=== PATIENT | female | born 2000 | race African-American/Black ===

== ENCOUNTER 2019-07-31 05:47 | Emergency (ER) | payer OTHER ==
[~2019-07-31] VITALS: Ht 172.7 cm; Wt 90.7 kg
[~2019-07-31 05:47] MED LIST: BENTYL 20 MG TA20 M1 PO; GAS-X125 M1 PO; ZOFRAN ODT4 MG PO
[2019-07-31] MEDS ORDERED: EXCEDRIN MIGRA1 EAC1 PO (05:53)
[2019-07-31 06:37] LABS: ABSOLUTE NEUTROPHILS 3.4 thou/uL (1.4-8.2); BASOPHILS 1.1 % (0.0-2.0); CALCIUM 9.5 mg/dL (8.5-10.1); CREATININE 0.9 mg/dL (0.6-1.0); HEMATOCRIT 34.7 % (37.0-47.0); HEMOGLOBIN 10.8 gm/dL (12.0-15.0); LYMPHOCYTES 36.4 % (24.0-44.0); MCH 21.7 pg (26.0-34.0); MCHC 31.2 g/dL (28.0-37.0); MCV 69.6 fL (80.0-100.0); MONOCYTES 6.1 % (1.0-8.0); PLATELET COUNT 422 thou/uL (150-400); POLYS 55.4 % (36.0-66.0); POTASSIUM 4.2 mmol/L (3.5-5.1); RBC 4.98 mil/uL (4.20-5.00); RDW 18.4 % (10.5-14.5); WBC 6.2 thou/uL (4.0-11.0)
[2019-07-31 08:53] VITALS: BP 114/75
[2019-08-01] MEDS ORDERED: IMITREX100 MG PO (13:56)
== END 2019-07-31 08:54 | disposition home or self-care (01) ==
LOC: ER 05:47
PROVIDERS: Emergency Medicine
DX: G43.909 Migraine, unspecified, not intractable, without status migrainosus (principal); J45.909 Unspecified asthma, uncomplicated; Z88.6 Allergy status to analgesic agent; Z79.82 Long term (current) use of aspirin

== ENCOUNTER 2019-08-01 10:02 | Emergency (ER) | payer OTHER ==
[~2019-08-01] VITALS: Ht 170.2 cm; Wt 90.7 kg
[~2019-08-01 10:02] MED LIST changes: +EXCEDRIN MIGRA1 EAC1 PO
[2019-08-01 10:31] LABS: ABSOLUTE NEUTROPHILS 3.3 thou/uL (1.4-8.2); BASOPHILS 0.6 % (0.0-2.0); EOSINOPHILS 0.7 % (0.0-3.0); HEMOGLOBIN 10.2 gm/dL (12.0-15.0); LYMPHOCYTES 46.3 % (24.0-44.0); MCHC 30.8 g/dL (28.0-37.0); MCV 68.3 fL (80.0-100.0); MONOCYTES 5.6 % (1.0-8.0); PLATELET COUNT 411 thou/uL (150-400); POLYS 46.8 % (36.0-66.0); RBC 4.83 mil/uL (4.20-5.00); RDW 18.4 % (10.5-14.5)
[2019-08-01 10:45] LABS: ANION GAP 8 mmol/L (7-16); BUN 10 mg/dL (7-18); CALCIUM 9.6 mg/dL (8.5-10.1); CHLORIDE 106 mmol/L (98-107); CO2 24 mmol/L (21-32); CREATININE 0.9 mg/dL (0.6-1.0); GLUCOSE 90 mg/dL (74-106); POTASSIUM 3.8 mmol/L (3.5-5.1); SODIUM 138 mmol/L (136-145)
[2019-08-01 10:54] LABS: MAGNESIUM 1.8 mg/dL (1.8-2.4); TROPONIN-I <0.06 ng/mL (<0.06)
[2019-08-01 12:44] LABS: ANISOCYTOSIS 2+; MICROCYTES 2+; PLATELET ESTIMATE NORMAL
[2019-08-01] MEDS ORDERED: IMITREX100 MG PO (13:56)
[2019-08-01 15:09] VITALS: BP 111/64
--- NOTE | 2019-08-02 09:36 | EKG ---
[address] [employer] [place] [address] ELECTROCARDIOGRAM REPORT Name: RASHID WRIGHT [id number] Admission: 08/01/19 Attend Phys: Discharge: 08/01/19 Date of : [birth year] Report #: [id number] THIS REPORT FOR: //name// [facility] ED Test Date: 2019-08-01 Test Time: 10:01:43 Pat Name: RASHID WRIGHT Department: Room: Gender: F Vegetable Preparer: DAMEON : 2000 Requested By: Jovany Joy Order Number: [id number] MD: Jermaine Coley Measurements Intervals [place] Rate: 68 P: 23 AR: 159 QRS: 55 QRSD: 81 T: 32 QT: 377 QTc: 401 Interpretive Statements Sinus rhythm Normal tracing No previous ECG available for comparison Electronically Signed On 08-02-2019 9:36:42 CLINICAL ALLERGIST by Jermaine Coley [email or web address] <ELECTRONICALLY SIGNED> By: Jermaine Coley MD, [facility] 08/02/19 0936 1001 1001 Jermaine Coley MD, FACC /EPI
== END 2019-08-01 15:10 | disposition home or self-care (01) ==
LOC: ER 10:02
PROVIDERS: Emergency Medicine
DX: G43.909 Migraine, unspecified, not intractable, without status migrainosus (principal); J45.909 Unspecified asthma, uncomplicated; Z88.6 Allergy status to analgesic agent; Z88.8 Allergy status to other drugs, medicaments and biological substances

== ENCOUNTER 2019-10-17 17:08 | Emergency (ER) | payer OTHER ==
[~2019-10-17] VITALS: Ht 177.8 cm; Wt 76.2 kg
[~2019-10-17 17:08] MED LIST changes: +IMITREX100 MG PO
[2019-10-17 18:17] LABS: ABSOLUTE NEUTROPHILS 9.9 thou/uL (1.4-8.2); BASOPHILS 0.5 % (0.0-2.0); EOSINOPHILS 0.3 % (0.0-3.0); HEMATOCRIT 35.5 % (37.0-47.0); HEMOGLOBIN 10.8 gm/dL (12.0-15.0); LYMPHOCYTES 14.6 % (24.0-44.0); MCHC 30.3 g/dL (28.0-37.0); MCV 72.4 fL (80.0-100.0); MONOCYTES 5.5 % (1.0-8.0); PLATELET COUNT 402 thou/uL (150-400); POLYS 79.1 % (36.0-66.0); RDW 19.8 % (10.5-14.5); WBC 12.5 thou/uL (4.0-11.0)
[2019-10-17 18:26] LABS: ANION GAP 7 mmol/L (7-16); BUN 8 mg/dL (7-18); CALCIUM 9.6 mg/dL (8.5-10.1); CHLORIDE 102 mmol/L (98-107); CO2 28 mmol/L (21-32); CREATININE 0.8 mg/dL (0.6-1.0); GLUCOSE 85 mg/dL (74-106); POTASSIUM 3.7 mmol/L (3.5-5.1); SODIUM 137 mmol/L (136-145)
[2019-10-17 18:36] LABS: ALBUMIN 3.9 g/dL (3.4-5.0); SGOT 17 U/L (15-37); SGPT 25 U/L (30-65); TOTAL BILIRUBIN 0.3 mg/dL (<0.1-1.0); TOTAL PROTEIN 8.1 g/dL (6.4-8.2); TROPONIN-I <0.06 ng/mL (<0.06)
[2019-10-17 18:38] LABS: URINE BILIRUBIN NEGATIVE (Negative); URINE BLOOD NEGATIVE (Negative); URINE CLARITY CLEAR; URINE COLOR YELLOW; URINE GLUCOSE-RANDOM* NEGATIVE (Negative); URINE KETONES 1+ (Negative); URINE LEUKOCYTES-REFLEX TRACE (Negative); URINE NITRITE-REFLEX NEGATIVE (Negative); URINE PROTEIN (DIPSTICK) NEGATIVE (Negative); URINE SPECIFIC GRAVITY >= 1.030 (1.005-1.035); URINE UROBILINOGEN 0.2 E.U./dl (0.2-1.0)
[2019-10-17 19:15] LABS: ANISOCYTOSIS 2+; HYPOCHROMASIA 1+; MICROCYTES 1+; OVALOCYTES OCCASIONAL
[2019-10-17 19:36] VITALS: BP 120/80
--- NOTE | 2019-10-18 08:00 | EKG ---
[facility] [place] [address] ELECTROCARDIOGRAM REPORT Name: RASHID WRIGHT Room #: DEP [facility]#: [id number] Admission: 10/17/19 Attend Phys: Discharge: 10/17/19 Date of : [birth year] Report #: [id number] THIS REPORT FOR: cc: SHERLEY Chavez family physician/PCP SHERLEY - Kathy family physician/PCP Asael Herrera MD ~ THIS REPORT FOR: //name// [facility] ED Test Date: 2019-10-17 Test Time: 17:12:03 Pat Name: RASHID WRIGHT Department: Room: Gender: J2Ee Architect: ABDIRAHMAN : 2000 Requested By: Jalyn Ocampo Order Number: [id number] MD: Asael Herrera Measurements Intervals [place] Rate: 76 P: 19 [place]: 158 QRS: 81 QRSD: 81 T: 52 QT: 379 QTc: 427 Interpretive Statements Sinus rhythm Compared to ECG 08/01/2019 10:01:43 No significant changes Electronically Signed On 10-18-2019 7:59:16 BUSINESS DEVELOPMENT REPRESENTATIVE by Asael Herrera [email or web address] <ELECTRONICALLY SIGNED> By: Asael Herrera MD 10/18/19 0759 11 11 Asael Herrera MD /EPI
== END 2019-10-17 18:35 | disposition home or self-care (01) ==
LOC: ER 17:08
PROVIDERS: Physician Assistant
DX: G43.909 Migraine, unspecified, not intractable, without status migrainosus (principal); M54.5 Low back pain; R07.89 Other chest pain; R42 Dizziness and giddiness; J45.909 Unspecified asthma, uncomplicated; Z88.6 Allergy status to analgesic agent

== ENCOUNTER 2020-05-22 08:03 | Emergency (ER) | payer OTHER ==
[~2020-05-22] VITALS: Ht 170.2 cm; Wt 90.7 kg
[2020-05-22 08:16] VITALS: BP 112/73
[2020-05-22] MEDS ORDERED: NOHOMEMEDICATIONS (08:22)
== END 2020-05-22 08:50 | disposition home or self-care (01) ==
LOC: ER 08:03
DX: J06.9 Acute upper respiratory infection, unspecified (principal); B97.89 Other viral agents as the cause of diseases classified elsewhere; J45.909 Unspecified asthma, uncomplicated; Z88.8 Allergy status to other drugs, medicaments and biological substances; Z20.828 Contact with and (suspected) exposure to other viral communicable diseases

== ENCOUNTER 2020-05-29 08:22 | Emergency (ER) | payer OTHER ==
[~2020-05-29] VITALS: Ht 170.2 cm; Wt 90.7 kg
[~2020-05-29 08:22] MED LIST changes: +NOHOMEMEDICATIONS
[2020-05-29 09:30] LABS: HEMATOCRIT 30.9 % (37.0-47.0); HEMOGLOBIN 9.4 gm/dL (12.0-15.0); MCH 20.3 pg (26.0-34.0); MCHC 30.3 g/dL (28.0-37.0); MCV 67.2 fL (80.0-100.0); PLATELET COUNT 473 thou/uL (150-400); RDW 18.4 % (10.5-14.5); WBC 16.6 thou/uL (4.0-11.0)
[2020-05-29 09:35] LABS: ANION GAP 10 mmol/L (7-16); BUN 4 mg/dL (7-18); CALCIUM 9.1 mg/dL (8.5-10.1); CHLORIDE 101 mmol/L (98-107); CO2 26 mmol/L (21-32); GLUCOSE 105 mg/dL (74-106); POTASSIUM 3.8 mmol/L (3.5-5.1); SODIUM 137 mmol/L (136-145)
[2020-05-29 09:41] LABS: ALBUMIN 3.3 g/dL (3.4-5.0); DIRECT BILIRUBIN < 0.1 mg/dL (<0.1-0.2); LIPASE 78 U/L (73-393); SGOT 15 U/L (15-37); SGPT 20 U/L (30-65); TOTAL BILIRUBIN 0.4 mg/dL (0.2-1.0); TOTAL PROTEIN 8.3 g/dL (6.4-8.2)
[2020-05-29 10:09] LABS: ABSOLUTE NEUTROPHILS 11.8 thou/uL (1.4-8.2); ANISOCYTOSIS 1+; ATYPICAL LYMPHS 2 %; HYPOCHROMASIA 1+; MICROCYTES 1+; OVALOCYTES 1+; POIKILOCYTOSIS 1+
[2020-05-29 10:51] LABS: URINE BILIRUBIN NEGATIVE (Negative); URINE BLOOD 1+ (Negative); URINE CLARITY CLEAR; URINE COLOR YELLOW; URINE GLUCOSE-RANDOM* NEGATIVE (Negative); URINE KETONES NEGATIVE (Negative); URINE NITRITE-REFLEX NEGATIVE (Negative); URINE PROTEIN (DIPSTICK) TRACE (Negative); URINE SPECIFIC GRAVITY 1.025 (1.005-1.035); URINE UROBILINOGEN 0.2 E.U./dl (0.2-1.0)
[2020-05-29 11:17] LABS: URINE LEUKOCYTES-REFLEX 3+ (Negative)
[2020-05-29 11:19] LABS: CASTS None Seen /LPF (None Seen); MUCUS >6 Heavy strn/LPF (None Seen); SQUAMOUS 4-10 Moderate /LPF (0-3)
[2020-05-29 11:20] LABS: BACTERIA-REFLEX 1-9 Few /HPF (None Seen); CRYSTALS None Seen /LPF (None Seen); URINE RBC 0-2 Rare /HPF (0-2); URINE WBC-REFLEX >25 Many /HPF (0-5)
[2020-05-29] MEDS ORDERED: NORCO 5-325 TA1 EAC2 PO (11:57)
[2020-05-29] MEDS ORDERED: DOXYCYCLINE 10100 MG PO (11:57)
[2020-05-29 12:03] VITALS: BP 119/83
== END 2020-05-29 12:08 | disposition home or self-care (01) ==
LOC: ER 08:22
PROVIDERS: Emergency Medicine
DX: N73.9 Female pelvic inflammatory disease, unspecified (principal); R05 Cough; J45.909 Unspecified asthma, uncomplicated; Z88.8 Allergy status to other drugs, medicaments and biological substances

== ENCOUNTER 2020-05-29 15:23 | Emergency (ER) | payer OTHER ==
[~2020-05-29] VITALS: Ht 170.2 cm; Wt 90.7 kg
[~2020-05-29 15:23] MED LIST changes: +DOXYCYCLINE 10100 MG PO; +NORCO 5-325 TA1 EAC2 PO
[2020-05-29 15:50] LABS: ABSOLUTE NEUTROPHILS 11.2 thou/uL (1.4-8.2); BASOPHILS 0.7 % (0.0-2.0); EOSINOPHILS 0.5 % (0.0-3.0); HEMATOCRIT 28.3 % (37.0-47.0); HEMOGLOBIN 8.9 gm/dL (12.0-15.0); LYMPHOCYTES 16.7 % (24.0-44.0); MCH 21.1 pg (26.0-34.0); MCHC 31.5 g/dL (28.0-37.0); MONOCYTES 10.3 % (1.0-8.0); PLATELET COUNT 440 thou/uL (150-400); POLYS 71.8 % (36.0-66.0); RBC 4.22 mil/uL (4.20-5.00); RDW 18.2 % (10.5-14.5); WBC 15.6 thou/uL (4.0-11.0)
[2020-05-29 16:02] LABS: CALCIUM 8.7 mg/dL (8.5-10.1); CREATININE 1.1 mg/dL (0.6-1.0); POTASSIUM 3.2 mmol/L (3.5-5.1)
[2020-05-29 16:09] LABS: TOTAL BILIRUBIN 0.4 mg/dL (0.2-1.0)
[2020-05-29 16:20] LABS: HYPOCHROMASIA 1+
[2020-05-29 16:21] LABS: ANISOCYTOSIS 2+; MICROCYTES 2+; PLATELET ESTIMATE NORMAL; POLYCHROMASIA SLIGHT
[2020-05-29 17:40] VITALS: BP 134/89
== END 2020-05-29 17:40 | disposition home or self-care (01) ==
LOC: ER 15:23
PROVIDERS: Nurse Practitioner Family
DX: R56.9 Unspecified convulsions (principal); R10.30 Lower abdominal pain, unspecified; J45.909 Unspecified asthma, uncomplicated; Z88.8 Allergy status to other drugs, medicaments and biological substances

== ENCOUNTER 2021-02-09 22:30 | Emergency (ER) | payer OTHER ==
[~2021-02-09] VITALS: Ht 170.2 cm; Wt 79.4 kg
[2021-02-09 22:52] LABS: URINE BILIRUBIN NEGATIVE (Negative); URINE BLOOD 1+ (Negative); URINE CLARITY CLEAR; URINE COLOR YELLOW; URINE GLUCOSE-RANDOM* NEGATIVE (Negative); URINE KETONES NEGATIVE (Negative); URINE NITRITE-REFLEX NEGATIVE (Negative); URINE PROTEIN (DIPSTICK) NEGATIVE (Negative); URINE UROBILINOGEN 0.2 E.U./dl (0.2-1.0)
[2021-02-09 22:59] LABS: URINE LEUKOCYTES-REFLEX 3+ (Negative)
[2021-02-09 23:01] LABS: BACTERIA-REFLEX 1-9 Few /HPF (None Seen); CASTS None Seen /LPF (None Seen); CRYSTALS None Seen /LPF (None Seen); MUCUS 0-3 Light strn/LPF (None Seen); SQUAMOUS 4-10 Moderate /LPF (0-3); URINE RBC 3-10 Few /HPF (NONE SEEN); URINE WBC-REFLEX 6-15 Few /HPF (0-5)
[2021-02-09] MEDS ORDERED: KEFLEX250 MG PO (23:38)
[2021-02-09] MEDS ORDERED: PYRIDIUM200 MG PO (23:38)
[2021-02-09] MEDS ORDERED: TYLENOL325 M1 PO (23:38)
[2021-02-10 00:12] VITALS: BP 132/68
== END 2021-02-10 00:13 | disposition home or self-care (01) ==
LOC: ER 22:30
PROVIDERS: Nurse Practitioner
DX: N39.0 Urinary tract infection, site not specified (principal); J45.909 Unspecified asthma, uncomplicated; Z91.018 Allergy to other foods; Z88.6 Allergy status to analgesic agent

== ENCOUNTER 2021-09-01 13:47 | Emergency (ER) | payer OTHER ==
[~2021-09-01] VITALS: Ht 170.2 cm; Wt 72.6 kg
[~2021-09-01 13:47] MED LIST changes: +KEFLEX250 MG PO; +PYRIDIUM200 MG PO; +TYLENOL325 M1 PO
[2021-09-01 14:12] VITALS: BP 123/79
[2021-09-01] MEDS ORDERED: ZOFRAN ODT4 MG PO (15:07)
== END 2021-09-01 15:25 | disposition home or self-care (01) ==
LOC: ER 13:47
DX: U07.1 COVID-19 (principal); J10.1 Influenza due to other identified influenza virus with other respiratory manifestations; F12.90 Cannabis use, unspecified, uncomplicated; J45.909 Unspecified asthma, uncomplicated; Z88.6 Allergy status to analgesic agent; Z79.899 Other long term (current) drug therapy